=== PATIENT | female | born 1955 | race Hispanic/Latino ===

== ENCOUNTER 2016-12-24 08:00 | Day surgery (SDC) | payer BC ==
[2016-12-24] MEDS ORDERED: LACTATED RINGERS 1,000 ML ONE (09:56)
--- NOTE | 2016-12-24 11:21 | OP ---
DATE OF PROCEDURE: 12/24/16 PREPROCEDURE DIAGNOSIS: 1. History of presumed ulcerative colitis. 2. Rectal bleeding. POSTPROCEDURE DIAGNOSIS: 1. Mild to moderate colitis, predominantly left side up to distal transverse colon. 2. Multiple colonic polyps, likely pseudopolyps. PROCEDURE: 1. Colonoscopy. SURGEON: Wisam Rojo MD SEDATION: The patient was sedated via IV propofol by the Anesthesia Department. COMPLICATIONS: No immediate complications. CONSENT: Prior to the procedure, risks, benefits and alternatives to the therapy were discussed with the patient. The risks included bleeding, infection , perforation and . The patient agreed to the procedure and signed a consent. Preprocedure anesthesia assessment and examination revealed no contraindication to sedation. Airway examination was Mallampati class type 2, ASA grade assessment type 2. Throughout the procedure, the patient's blood pressure, pulse and oxygen saturation were monitored continuously. PROCEDURE: The patient was placed in the left lateral decubitus position and a rectal examination was performed. The rectal examination was within normal limits. The Olympus colonoscope was passed in the anus, rectum, traversing the colon to the level of the cecum as identified by the appendiceal orifice and the terminal ileum. The scope was retracted and the mucosa was visualized. The entirety of the exam was performed with direct visualization. Retroflexion was performed in the rectum. Preparation quality was good. The withdrawal time was greater than 6 minutes. The patient tolerated the procedure well. FINDINGS: Mild to moderate evidence of erythema, scattered erosions and small ulcerations were seen throughout the left side of the colon involving the rectum, sigmoid, descending colon, splenic flexure and distal transverse colon. Multiple scattered polypoid lesions were seen predominantly in this area, however, these were also visualized in the mid and proximal transverse colon. No evidence of erythema or erosions were seen in the ascending colon, nor the cecum or the terminal ileum. Biopsies were obtained from each segment including the terminal ileum, cecum, as well as the remainder of the affected colon. Biopsies were also taken from multiple polypoid lesions. Narrow band imaging was used on this side to identify particular areas of abnormal mucosa. Small non-bleeding internal hemorrhoids. IMPRESSION: 1. Mild to moderate scattered areas of erythema and erosions concerning for colitis, likely new accounts representative of ulcerative colitis. Polypoid lesions are suggestive of pseudopolyps. Biopsies were obtained from all segments of the colon. 2. Non-bleeding small internal hemorrhoids. RECOMMENDATION: 1. Return the patient home. 2. Re-start regular diet. 3. Followup pathology results. 4. Start prednisone 40 mg p.o. daily for the next 2 weeks, then taper down to 30 mg for the following week, decrease to 20 mg for one more week, and eventually down to 10 mg for an additional week and then may stop. Continue sulfasalazine at present dose. Start Rowasa enema 4 grams at bedtime. 5. Return to my office, Dr. Auguste, in the next 1 to 2 weeks to followup the pathology results and symptoms. #[id number] [facility]
[2016-12-24 11:25] VITALS: BP 89/49; TEMP 96.7; O2SAT 99
[2016-12-24] MEDS ORDERED: PROPOFOL 200 MG/20 ML VIAL IV ONE (12:00)
== END 2016-12-24 11:40 | disposition home or self-care (01) ==
LOC: AMB 08:00
PROVIDERS: ATTEND Internal Medicine Gastroenterology
DX: K62.5 Hemorrhage of anus and rectum (principal); D12.3 Benign neoplasm of transverse colon; K51.90 Ulcerative colitis, unspecified, without complications; K64.8 Other hemorrhoids; I10 Essential (primary) hypertension; E78.00 Pure hypercholesterolemia, unspecified; E11.9 Type 2 diabetes mellitus without complications; K21.9 Gastro-esophageal reflux disease without esophagitis; Z79.84 Long term (current) use of oral hypoglycemic drugs; Z79.899 Other long term (current) drug therapy
CPT/HCPCS: 00810; 36416; 45380; 82948; J3490; J7120